=== PATIENT | female | born 1985 | race Caucasian/White ===

== ENCOUNTER 2018-08-26 09:13 | Day surgery (SDC) | payer OTHER ==
[~2018-08-26] VITALS: Ht 170.2 cm; Wt 64.4 kg
[2018-08-26] VITALS (7 sets, daily range): BP systolic 107–116; BP diastolic 72–84; PULSE 73–84; TEMP 97.2–98.4
--- NOTE | 2018-08-26 11:00 | NUR ---
PATIENT ARRIVES FROM OR VIA CART. HEART SOUNDS NSR. ALERT AND ORIENTED X 4. BOWEL SOUNDS AUDIBLE. LUNGS CLEAR BILATERALLY. CALL LIGT IN REACH. AT BEDSIDE. DENIES NAUSEA OR PAIN. VS STARTED.
--- NOTE | 2018-08-26 11:44 | NUR ---
PATIENT REQUESTS SPRITE AND CRACKERS. VS STABLE. CALL LIGHT IN REACH. STILL AT BEDSIDE.
--- NOTE | 2018-08-26 12:20 | NUR ---
PATIENT GIVEN DISCHARGED INSTRUCTIONS WITH AT BEDSIDE, BOTH VERBALIZED UNDERSTANDING. VS REMAIN STABLE. DENIES NAUSEA AND PAIN. PATIENT AMBULATED TO ELEVATOR WITH AND STEADY GAIT.
== END 2018-08-26 12:20 | disposition home or self-care (01) ==
LOC: SDCO 09:13
DX: K21.0 Gastro-esophageal reflux disease with esophagitis (principal); F41.9 Anxiety disorder, unspecified; K29.30 Chronic superficial gastritis without bleeding; K58.0 Irritable bowel syndrome with diarrhea
CPT/HCPCS: J2704; J7030